=== PATIENT | female | born 2000 | race Caucasian/White ===

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

== ENCOUNTER → 2022-09-02 | Outpatient (CLI) | payer OTHER | END | disposition home or self-care (01) | LOC: LAB 08:15 → LAB SHORT 08:15 | PROVIDERS: Physician Assistant | DX: Z01.419 Encounter for gynecological examination (general) (routine) without abnormal findings (principal) | CPT/HCPCS: 88175 ==

== ENCOUNTER → 2022-11-14 | Outpatient (CLI) | payer OTHER | LOC: LAB SHORT 15:27 → LAB 15:27 | DX: J02.9 Acute pharyngitis, unspecified (principal) | CPT/HCPCS: 87081 ==

== ENCOUNTER 2024-03-01 09:47 | Day surgery (SDC) | payer OTHER ==
[~2024-03-01] VITALS: Ht 177.8 cm; Wt 55.8 kg
[~2024-03-01 09:47] MED LIST changes: +FentaNYL Citrate 50 MCG/ML 2 ML Injection ONE; +Lactated Ringer's 1,000 ML IV ONE; +Lidocaine 1%-Epineph 1:100000 20 ML MDV ONE; +Lidocaine 2%-Epineph 1:100000 20 ML MDV ONE; +Midazolam HCl 1MG / ML 2ML Vial ONE; +Sodium Bicarb 8.4% 1 MEQ/ML 50 ML Vial ONE; +propofoL 20 ML IV ONE
[2024-03-01] MEDS ORDERED: Lactated Ringer's 1,000 ML IV ONE (09:59)
--- NOTE | 2024-03-01 10:35 | NUR ---
03/01/24 1035 CHRIS HERNANDEZ IN FOR INJECTION, PT TOLERATED WELL.
[2024-03-01 11:40] VITALS: BP 117/88
== END 2024-03-01 11:25 | disposition home or self-care (01) ==
LOC: ORSCSDS 09:47
PROVIDERS: Orthopaedic Surgery
PROC: 0LB Tendons, Excision (ICD-10-PCS; principal; 2024-03-01 11:00)
DX: M25.831 Other specified joint disorders, right wrist (principal); K21.9 Gastro-esophageal reflux disease without esophagitis
CPT/HCPCS: 88304; J2250; J2704; J3010; J7120

== ENCOUNTER → 2024-03-29 | Outpatient (CLI) | payer OTHER ==
[~2024-03-29] MED LIST changes: -FentaNYL Citrate 50 MCG/ML 2 ML Injection ONE; -Lactated Ringer's 1,000 ML IV ONE; -Lidocaine 1%-Epineph 1:100000 20 ML MDV ONE; -Lidocaine 2%-Epineph 1:100000 20 ML MDV ONE; -Midazolam HCl 1MG / ML 2ML Vial ONE; -Sodium Bicarb 8.4% 1 MEQ/ML 50 ML Vial ONE; -propofoL 20 ML IV ONE
[2024-03-29 19:47] LABS: Candida Group, PCR NOT DETECTED (NOT DETECT); Candida glabrata-krusei, PCR NOT DETECTED (NOT DETECT)
[2024-03-29 19:52] LABS: Bacterial Vaginosis PCR Positive (NEGATIVE)
== END | disposition home or self-care (01) ==
LOC: LAB SHORT 13:22 → LAB 13:22
PROVIDERS: Family Medicine
DX: N89.8 Other specified noninflammatory disorders of vagina (principal)
CPT/HCPCS: 87481; 87661; 87801

== ENCOUNTER → 2025-06-21 | Outpatient (CLI) | payer OTHER ==
[2025-06-21 10:08] LABS: Source, Urine Clean Catch
[2025-06-21 12:03] LABS: Red Blood Cells, Urine 0-2 /hpf (0-2); White Blood Cells, Urine 0-2 /hpf (0-5)
== END ==
LOC: LAB SHORT 09:30 → LAB 09:30
PROVIDERS: Advanced Practice Midwife
DX: Z34.01 Encounter for supervision of normal first pregnancy, first trimester (principal)
CPT/HCPCS: 81015; 87086